=== PATIENT | male | born 1935 | race Caucasian/White ===

== ENCOUNTER 2016-02-21 14:36 | Observation (INO) | payer OTHER, MEDICARE ==
[2016-02-21] MEDS ORDERED: NS 1,000 ML IV ONE ×2 (14:51→22:45)
[2016-02-21] MEDS ORDERED: MECLIZINE HCL 25 MG TAB PO ONE (14:51)
[2016-02-21] MEDS ORDERED: ONDANSETRON 4 MG/2 ML VIAL IVP ONE (14:51)
--- NOTE | 2016-02-21 14:51 | CPEKG ---
Heart Rate: 58 RR Interval: 1034 P-R Interval: 232 QRSD Interval: 82 QT Interval: 456 QTC Interval: 448 P [place]: 67 QRS [place]: 33 T Wave [place]: 56 EKG Severity - ABNORMAL ECG - EKG Impression: SINUS RHYTHM EKG Impression: FIRST DEGREE AV BLOCK Electronically Signed By: Chapin Bauman 21-Feb-2016 15:56:48
--- NOTE | 2016-02-21 14:58 | EDPHY ---
H & P Time Seen by Provider: 02/21/16 14:51 HPI/ROS: CHIEF COMPLAINT: Vertigo, vomiting HISTORY OF PRESENT ILLNESS: The patient presents to the ED after he developed vertigo and vomiting approximately 2 hours ago. The patient has had a several week history of an upper respiratory infection which she has slowly been improving from. The patient has not been on any antibiotics. He has a chronic seizure disorder which he takes Depakote and phenobarbital for. He has not had a seizure in many years. The patient denies any focal numbness or weakness. He is not anticoagulated. He denies fall or trauma. He has no complaints of unilateral neck discomfort, chiropractic manipulation or recent cervical injury. REVIEW OF SYSTEMS: A comprehensive 10 point review of systems is otherwise negative aside from elements mentioned in the history of present illness. Source: Patient Exam Limitations: No limitations - Personal History Current Tetanus/Diphtheria Vaccine: Yes - Medical/Surgical History PMH: Past medical history: Seizure disorder - Social History Smoking Status: Never smoked - Physical Exam Exam: General Appearance: Alert, no distress Eyes: Mild horizontal nystagmus noted with leftward gaze ENT, Mouth: Mucous membranes moist Respiratory: There are no retractions, lungs are clear to auscultation Cardiovascular: Regular rate and rhythm Gastrointestinal: Abdomen is soft and nontender, no masses, bowel sounds normal Neurological: 5/5 strength all 4 extremities, cranial nerves 2-12 intact, normal finger to nose Skin: Warm and dry, no rashes Musculoskeletal: Neck is supple nontender Extremities: symmetrical, full range of motion Constitutional: Initial Vital Signs Temperature (C) 36.3 C 02/21/16 14:36 Heart Rate 59 L 02/21/16 14:36 Respiratory Rate 12 02/21/16 14:36 Blood Pressure 157/85 H 02/21/16 14:36 O2 Sat (%) 98 02/21/16 14:36 O2 Delivery Mode Nasal Cannula O2 (L/minute) 3 Allergies/Adverse Reactions: No Known Allergies Allergy (Unverified 02/21/16 14:48) Home Medications: Medication Instructions Recorded ASPIRIN 02/21/16 Dilantin 02/21/16 PHENOBARBITAL 02/21/16 Medical Decision Making - Diagnostics EKG Interpretation: EKG: Complete interpretation has been separately recorded in the [facility] archive. Summary impression: Sinus rhythm, first-degree AV block Imaging: CT head without contrast: Negative for intracranial hemorrhage, atrophy is noted. Chest x-ray AP: Images reviewed by myself, changes consistent with bronchitis or noted. ED Course/Re-evaluation: The patient presents to the emergency department with benign positional vertigo. The patient received IV Zofran and oral meclizine. Given his history of seizure disorder I did get a CT scan of his head which demonstrates no evidence of an intracranial hemorrhage or mass. Patient has had a one-week history of upper respiratory symptoms and does have evidence of bronchitis on his chest x-ray. The patient's neurologic examination was noted to be within normal limits aside from horizontal nystagmus with leftward gaze. In the ED, the patient received IV fluids and had multiple examinations by myself x3 over a 4 hour period. The patient has had fairly significant improvement of his symptoms but continues to feel quite unsteady with ambulation. I do feel that he will require admission to the hospital for symptomatic management of his vertigo. The patient will be admitted by the hospitalist service. His case has been discussed with Dr. Ben Ch. Considered the possibility of supratherapeutic anticonvulsant levels. A phenobarbital level has been ordered. I would expect that this would primarily resultant somnolence if it was elevated. The patient's Dilantin level was noted not to be supratherapeutic. Differential Diagnosis: Differential diagnosis considered includes benign positional vertigo, labyrinthitis, central vertigo, intracranial mass, stroke, TIA, pneumonia, Dilantin toxicity - Data Points Laboratory Results: Laboratory Results 02/21/16 14:40 02/21/16 14:40 02/21/16 02/21/16 14:40 14:10 WBC 6.16 10^3/uL (3.80-9.50) RBC 4.20 L 10^6/uL (4.40-6.38) Hgb 14.6 g/dL (13.7-17.5) Hct 41.4 % (40.0-51.0) MCV 98.6 fL (81.5-99.8) MCH 34.8 H pg (27.9-34.1) MCHC 35.3 g/dL (32.4-36.7) RDW 12.7 % (11.5-15.2) Plt Count 224 10^3/uL (150-400) MPV 10.1 fL (8.7-11.7) Neut % (Auto) 72.8 % (39.3-74.2) Lymph % (Auto) 16.6 % (15.0-45.0) Chase % (Auto) 6.7 % (4.5-13.0) Eos % (Auto) 3.1 % (0.6-7.6) Baso % (Auto) 0.5 % (0.3-1.7) Nucleat RBC Rel Count 0.0 % (0.0-0.2) Absolute Neuts (auto) 4.49 10^3/uL (1.70-6.50) Absolute Lymphs (auto) 1.02 10^3/uL (1.00-3.00) Absolute Monos (auto) 0.41 10^3/uL (0.30-0.80) Absolute Eos (auto) 0.19 10^3/uL (0.03-0.40) Absolute Basos (auto) 0.03 10^3/uL (0.02-0.10) Absolute Nucleated RBC 0.00 10^3/uL (0-0.01) Immature Gran % 0.3 % (0.0-1.1) Immature Gran # 0.02 10^3/uL (0.00-0.10) Sodium 143 mEq/L (134-144) Potassium 4.6 mEq/L (3.5-5.2) Chloride 102 mEq/L (97-110) Carbon Dioxide 29 mEq/l (22-31) Anion Gap 12 mEq/L (8-16) BUN 16 mg/dL (7-23) Creatinine 0.7 mg/dL (0.7-1.3) Estimated GFR > 60 Glucose 114 H mg/dL (70-100) Calcium 9.1 mg/dL (8.5-10.4) Troponin I < 0.012 ng/mL (0-0.034) Phenytoin 5.7 L mcg/mL (10.0-20.0) Phenobarbital Pending Medications Given: Discontinued Medications Sodium Chloride (Ns) 1,000 mls @ 0 mls/hr IV ONCE ONE PRN Reason: Wide Open Stop: 02/21/16 14:52 Last Admin: 02/21/16 15:04 Dose: 1,000 mls Meclizine HCl (Meclizine Hcl) 25 mg PO EDNOW ONE Stop: 02/21/16 14:52 Last Admin: 02/21/16 15:00 Dose: 25 mg Ondansetron HCl (Zofran) 4 mg IVP EDNOW ONE Stop: 02/21/16 14:52 Last Admin: 02/21/16 16:50 Dose: 4 mg Departure - Departure Disposition: [facility] Clinical Impression: Vertigo Condition: Fair
[2016-02-21 15:48] LABS: % IMMATURE GRANULYOCYTES 0.3 % (0.0-1.1); ABSOLUTE IMMATURE GRANULOCYTES 0.02 10^3/uL (0.00-0.10); ADD DIFF? NO; ADD MORPH? NO; ADD SCAN? NO; ATYPICAL LYMPHOCYTE FLAG 0 (0-99); FRAGMENT RBC FLAG 0 (0-99); HEMATOCRIT 41.4 % (40.0-51.0); HEMOGLOBIN 14.6 g/dL (13.7-17.5); LEFT SHIFT FLG 0 (0-99); LIPEMIA HEMOLYSIS FLAG 90 (0-99); MEAN CELL HEMOGLOBIN 34.8 pg (27.9-34.1); MEAN CELL HEMOGLOBIN CONCENTR. 35.3 g/dL (32.4-36.7); MEAN CELL VOLUME 98.6 fL (81.5-99.8); MEAN PLATELET VOLUME 10.1 fL (8.7-11.7); PLATELET CLUMPS FLAG 0 (0-99); PLATELET COUNT 224 10^3/uL (150-400); RED CELL DISTRIBUTION WIDTH 12.7 % (11.5-15.2)
[2016-02-21 15:57] LABS: ANION GAP 12 mEq/L (8-16); CALCIUM 9.1 mg/dL (8.5-10.4); CARBON DIOXIDE 29 mEq/l (22-31); CHLORIDE 102 mEq/L (97-110); CREATININE 0.7 mg/dL (0.7-1.3); GLOMERULAR FILTRATION RATE > 60; GLUCOSE 114 mg/dL (70-100); POTASSIUM 4.6 mEq/L (3.5-5.2); SODIUM 143 mEq/L (134-144)
[2016-02-21 16:08] LABS: TROPONIN I < 0.012 ng/mL (0-0.034)
--- NOTE | 2016-02-21 16:26 | CT ---
CT Brain (Without Contrast) at 1613 hours History: Ataxia, vertigo. Comparison: None. Technique: Axial computed tomographic images of the brain without contrast. Dose reduction techniques were utilized. Findings: Ventricles, cisterns, and sulci are widened consistent with atrophy. No hydrocephalus, mid line shift/herniation, or epidural/subdural hematomas. No acute intraparenchymal hemorrhage or mass e ffect. Cerebrovascular atherosclerosis. Hypodensities in the white matter of bilateral cerebral hemis pheres. Bone windows demonstrate no displaced fractures. Paranasal sinuses and mastoid air cells are clear. Impression: 1. Mild atrophy. 2. No acute hemorrhage, hydrocephalus, or mass effect. 3. Cerebrovascular atherosclerosis. 4. No definite acute infarct. 5. Mild microvascular ischemic gliosis. 6. Consider MRI of the brain without and with contrast enhancement, if there is continued clinical co ncern. Findings and recommendations discussed with Emergency Department physician, Dr. Chapin Bauman at 162 0 hours today. Final report concurs with initial preliminary interpretation.
--- NOTE | 2016-02-21 19:43 | DX ---
Chest, One View Portable 1652 hours History: Cough. Comparison: None. Findings: Cardiac silhouette is mildly enlarged. No pneumonia, congestive heart failure, pleural eff usion, or pneumothorax. Bilateral peribronchial thickening. Bilateral hilar and left lower lobe calci fied granulomata. Impression: 1. Bronchitis. 2. No definite pneumonia. 3. Consider chest two views when the patient's medical condition permits.
[2016-02-21 20:11] VITALS: RESP 18
--- NOTE | 2016-02-21 20:30 | GHP ---
[f rep st] HISTORY AND PHYSICAL DATE OF ADMISSION: 02/21/2016 CHIEF COMPLAINT: Dizziness. HISTORY OF PRESENT ILLNESS: This is an 80-year-old male who leads a very active life and continues t o snowboard who presented to the emergency department today by EMS with vertigo. The patient states that around noon he suddenly became debilitated with room spinning dizziness. It occurred while he w as getting dressed. His symptoms lasted for hours. The dizziness would get better with lying still but would come back whenever he would try to move. He denies any previous episodes of this. He wendie es any new hearing loss. He denies any focal neurologic deficits. He has been suffering from upper respiratory infection over the past few weeks. PAST MEDICAL HISTORY: Glaucoma, seizure disorder. PAST SURGICAL HISTORY: Hernia repair. HOME MEDICATIONS: Aspirin, Dilantin, phenobarbital. ALLERGIES: No known drug allergies. SOCIAL HISTORY: The patient lives independently with his . He denies any alcohol, tobacco or il licit drug use. FAMILY HISTORY: Reviewed and noncontributory. REVIEW OF SYSTEMS: Comprehensive 10-point review of systems was done and is negative except for as m entioned in the HPI and below. CARDIOVASCULAR: Denies chest pain or palpitations. PHYSICAL EXAM: VITAL SIGNS: Blood pressure 149/85, pulse 64, respiratory rate 20, O2 sat 100% on 3 L. Temperature afebrile. GENERAL: No acute distress. HEAD: Normocephalic, atraumatic. EYES: PE RRLA. Sclerae anicteric. MOUTH: Moist mucous membranes. EARS: Tympanic membranes were not visual ized due to cerumen impaction. NECK: Supple. No lymphadenopathy. CARDIOVASCULAR: S1, S2. No JVD . No lower extremity edema. No carotid bruits. PULMONARY: Lungs are clear. No wheezes, rales, or rhonchi. ABDOMEN: Soft, nontender, nondistended. No guarding or rebound tenderness. Normoactive bowel sounds. EXTREMITIES: No clubbing or cyanosis. NEURO: Cranial nerves 2-12 grossly intact. T here is no nystagmus. Beverly-Hallpike test is positive with left rotation. SKIN: Clear, no rashes. DIAGNOSTICS: CBC was reviewed and unremarkable. Chemistry was reviewed and unremarkable. Troponin was less than 0.012. Dilantin level is 5.7, phenobarbital level is pending. Head CT was reviewed with no hemorrhage, hydrocephalus or mass effect. Chest x-ray, which I visualiz ed and personally interpreted, showed no pneumonia, possible bronchitis. EKG, which I visualized and personally interpreted, sinus rhythm, rate 58 beats per minute, with 1st degree AV block. There are no acute ischemic changes. ASSESSMENT: This is an 80-year-old male presenting with: 1. Acute vertigo, which I suspect is due to BPPV versus acute neuronitis, doubt central cause of lizette tigo. PLAN: Patient will be placed on observation. I did attempt Fabby maneuver in the emergency departme nt. His vertigo will be treated symptomatically with meclizine and Valium at a low dose, if the mecl izine is ineffective. The patient was instructed to keep the head of bed at least 30 degrees and to avoid any sudden head rotation. /[id number]/MODL
[2016-02-21] MEDS ORDERED: MECLIZINE HCL 25 MG TAB PO PRN (21:34)
[2016-02-21] MEDS ORDERED: ONDANSETRON 4 MG/2 ML VIAL IVP PRN (22:46)
[2016-02-21] MEDS: BRIMONIDINE 0.2% 5 ML OPHT.BTL EACHEYE SCH (22:51)
[2016-02-21] MEDS: TIMOLOL 0.5% 15 ML OPHT.BTL EACHEYE SCH (22:52)
[2016-02-21] MEDS: PHENYTOIN SODIUM EXTENDED 100 MG CAP PO SCH (22:54)
[2016-02-21] MEDS: PHENobarbital 30 MG TAB PO SCH (22:54)
[2016-02-21] MEDS: DORZOLAMIDE 2% OPTH DROPS EACHEYE SCH (23:03)
[2016-02-21] MEDS: LATANOPROST 0.005% 2.5 ML OPHT DROPS RTEYE SCH (23:03)
[2016-02-22] MEDS ORDERED: PHENYTOIN SODIUM EXTENDED 100 MG CAP PO SCH (06:00)
[2016-02-22] MEDS ORDERED: PHENOBARBITAL 32.4 MG PO SCH (06:00)
[2016-02-22] MEDS ORDERED: PHENobarbital 30 MG TAB PO SCH (06:00)
[2016-02-22] MEDS: PHENYTOIN SODIUM EXTENDED 100 MG CAP PO SCH ×2 (06:04→11:40)
[2016-02-22] MEDS: PHENobarbital 30 MG TAB PO SCH ×2 (06:08→11:59)
[2016-02-22] MEDS: BRIMONIDINE 0.2% 5 ML OPHT.BTL EACHEYE SCH (08:48)
[2016-02-22] MEDS: TIMOLOL 0.5% 15 ML OPHT.BTL EACHEYE SCH (08:48)
[2016-02-22] MEDS ORDERED: BRIMONIDINE 0.2% 5 ML OPHT.BTL EACHEYE SCH (09:00)
[2016-02-22] MEDS ORDERED: ASPIRIN 325 MG TAB PO SCH (09:00)
[2016-02-22] MEDS: DORZOLAMIDE 2% OPTH DROPS EACHEYE SCH (09:47)
--- NOTE | 2016-02-22 11:00 | HOSPPROG ---
Hospitalist Progress Note Assessment/Plan: Patient is an 80-year-old male who presented to the emergency room with dizziness and with the room spinning. Today is my 1st encounter with the patient chart reviewed. #. Vertigo /likely BPPV -symptoms completely resolved -suspect he was dehydrated in addition #. history of seizures - home medications resumed #. Urinary retention -episodic/ voiding without difficulty now -encouraged him to f/u with his PCP #. Plan -dc home Subjective: Reginald is feeling well/ no further complaints of dizziness. Objective: Vital Signs Temp Pulse Resp BP Pulse Ox 36.7 C 65 18 112/72 96 02/22/16 08:00 02/22/16 08:00 02/22/16 08:00 02/22/16 08:00 02/22/16 08:00 02/21/16 02/22/16 02/23/16 05:59 05:59 05:59 Intake Total 2150 Output Total 525 200 Balance 1625 -200 - Physical Exam Constitutional: no apparent distress, appears nourished, not in pain Eyes: PERRL Ears, Nose, Mouth, Throat: hearing normal Cardiovascular: regular rate and rhythym Respiratory: no respiratory distress Gastrointestinal: normoactive bowel sounds Skin: warm Musculoskeletal: no muscle tenderness Neurologic: AAOx3 Psychiatric: interacting appropriately, not anxious ICD10 Worksheet Patient Problems: Problems Problem Status Diagnosed Vertigo Acute
[2016-02-22] MEDS: LATANOPROST 0.005% 2.5 ML OPHT DROPS RTEYE SCH (11:27)
[2016-02-22 11:50] VITALS: BP 125/74; PULSE 59; TEMP 98.3; O2SAT 91
--- NOTE | 2016-02-22 12:29 | GDS ---
[f rep st] DISCHARGE SUMMARY DISCHARGE DIAGNOSES: 1. Vertigo/likely benign position paroxysmal vertigo. 2. History of seizures. 3. Urinary retention. BRIEF HISTORY: The patient is a very nice 80-year-old man who presented to the emergency room via EM S with symptoms of vertigo. He stated that around noon he became debilitated and the room was [facility]. He shared with me he had been taking decongestants because he had an upper respiratory infection and wondered if he had been dehydrated instead. His symptoms improved in the emergency room after g etting the Fabby maneuver. He will be discharged home and have further follow up with his primary care provider. HOSPITAL COURSE PER PROBLEM: 1. Vertigo, likely BPPV (benign position paroxysmal vertigo): Symptoms have completely resolved. 2. History of seizures: Home medications have been resumed. 3. Urinary retention: This is episodic. He is voiding at this time without difficulty. I encourag ed him to follow up with his PCP pending labs. Phenobarbital level is pending. CONDITION AT DISCHARGE: Stable. Blood pressure is 112/72, O2 saturations on room air 96%. Respirat ory rate is 18. Pulse is 65. Temperature is 36.7 Celsius. MEDICATIONS AT DISCHARGE: Please see the EMR. DISCHARGE INSTRUCTIONS: 1. To stay well hydrated. 2. To follow up with his pending phenobarbital level. 3. To follow up with his primary care provider and get further workup in case he may have an enlarge d prostate effecting his urination. Copy requested to: PCP /[id number]/MODL
== END 2016-02-22 13:10 | disposition home or self-care (01) ==
LOC: EDUNIT# → F3N 19:59
PROVIDERS: ADMIT Family Medicine; ATTEND Family Medicine
DX: R42 Dizziness and giddiness (principal); R33.9 Retention of urine, unspecified; R56.9 Unspecified convulsions
CPT/HCPCS: 70450; 71010; 93005; 96361; 96374; 99285; G0378; J2405

== ENCOUNTER 2016-02-23 00:11 | Emergency (ER) | payer OTHER, MEDICARE ==
[2016-02-23 00:21] VITALS: RESP 16; TEMP 97.9
--- NOTE | 2016-02-23 00:39 | EDPHY ---
HPI/HX/ROS/PE/MDM Narrative: Chief complaint: Urinary retention HPI: 80-year-old male was discharged from the hospital yesterday morning after admission for vertigo and urinary retention. Patient states he had upper respiratory symptoms was taking decongestants at home. He had an episode of vertigo which had improved and was discharged yesterday. Patient states that he was urinating with some difficulty when he left but about 3 hours ago was unable to urinate. He has increasing pressure in urgency urinate but is unable to pass any urine. Denies any fevers or chills. No nausea or vomiting. He has not had any more vertigo. ROS: 10 point Review of Systems is negative except as noted in the HPI. Physical exam: Gen: Awake, Alert, No Distress HEENT: Nose: no rhinorrhea Eyes: PERRLA, EOMI Mouth: Moist mucosa Neck: Supple, no JVD Chest: nontender, lungs clear to auscultation Heart: S1, S2 normal, no murmur Abd: Soft, non-tender, no guarding Back: no CVA tenderness, no midline tenderness Ext: no edema, non-tender Skin: no rash Neuro: CN II-XII intact, Sensation grossly intact, Strength 5/5 in bilateral upper and lower extremities ED Course: Quinn catheter placed. Patient had 800 mL of clear urine out. He feels significantly improved. Urinalysis shows some blood but otherwise no evidence of infection at this time. He will be discharged home with a leg bag with a Quinn catheter in place and follow up with Urology. Will return to the emergency depart for any concerns or worsening of symptoms. General Time Seen by Provider: 02/23/16 00:38 Initial Vital Signs: Initial Vital Signs Temperature (C) 36.6 C 02/23/16 00:15 Heart Rate 63 02/23/16 00:15 Respiratory Rate 16 02/23/16 00:15 Blood Pressure 169/92 H 02/23/16 00:15 O2 Sat (%) 96 02/23/16 00:15 O2 Delivery Mode Room Air Allergies/Adverse Reactions: No Known Allergies Allergy (Verified 02/21/16 20:14) Home Medications: Medication Instructions Recorded Aspirin [Aspirin 325 mg (*)] 325 mg PO DAILY 02/21/16 Brimonidine 0.2% [Alphagan 0.2%] 1 drops EACHEYE BID 02/21/16 Dorzolamide 2% [Trusopt 2% (*)] 1 drops EACHEYE BID 02/21/16 Latanoprost 0.005% [Xalatan 0.005% 1 drops RTEYE HS 02/21/16 (*)] Phenobarbital 32.4 mg PO QID 02/21/16 Phenytoin Sodium Extended 100 mg PO QID 02/21/16 [Dilantin (*)] Timolol 0.5% [TIMOPTIC 0.5% (*)] 1 drops EACHEYE BID 02/21/16 Departure - Departure Disposition: Home, Routine, Self-Care Clinical Impression: Acute retention of urine Condition: Good Instructions: Urinary Retention in Men (ED), Quinn Catheter Placement and Care (ED) Additional Instructions: Keep catherter in place until seen by urology or your physician. Return to the ER for increasing pain, fever, chills or any other concerns. Referrals: Milton Box MD [Primary Care Provider] - As per Instructions Leo Wong MD [Medical Doctor] - As per Instructions
[2016-02-23 01:54] VITALS: BP 120/65; PULSE 65; O2SAT 93
== END 2016-02-23 01:52 | disposition home or self-care (01) ==
PROC: 0T9B70Z Drainage of Bladder with Drainage Device, Via Natural or Artificial Opening (ICD-10-PCS; principal; 2016-02-23)
DX: R33.9 Retention of urine, unspecified (principal); Z79.82 Long term (current) use of aspirin

== ENCOUNTER 2016-02-26 13:20 | Emergency (ER) | payer OTHER, MEDICARE ==
[2016-02-26 13:33] VITALS: TEMP 98.1
--- NOTE | 2016-02-26 14:15 | EDPHY ---
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 HISTORY OF PRESENT ILLNESS: The patient is an 80 y/o male complaining of bleeding and intermittent pain at the site of his Quinn catheter since it was removed. He had the catheter placed one week ago for acute urinary retention and had it removed at his urologist's office, Dr. Wong, today. The nurse was then showing him how to self-cath and he developed some hematuria with abdominal cramping. He had increasing intermittent pain while at home that is now associated with inability to void. He takes an aspirin daily. REVIEW OF SYSTEMS: Constitutional: No fever, no chills Eyes: No visual changes ENT: No sore throat Respiratory: No cough, no shortness of breath Cardiac: No chest pain Gastrointestinal: No nausea, no vomiting Genitourinary: see HPI Musculoskeletal: No leg pain or swelling Skin: No rash Neurological: No headache, no numbness, no weakness Psychiatric: No depression (Denise Phelps) - Medical/Surgical History PMH: 1. Vertigo 2. Seizure disorder, last seizure in his 20s (Denise Phelps) - Social History Additional Social History: Family at bedside. (Denise Phelps) - Physical Exam Exam: General Appearance: Alert, no distress Eyes: Pupils equal and round, no conjunctival pallor or injection ENT, Mouth: Mucous membranes moist Neck: Normal inspection Respiratory: Lungs are clear to auscultation Cardiovascular: Regular rate and rhythm Gastrointestinal: Abdomen is soft and non- tender Urinary: Neurological: A&O, nonfocal, normal gait Skin: Warm and dry, no rash Extremities: Nontender, no pedal edema Psychiatric: Mood and affect normal (Denise Phelps) Constitutional: Initial Vital Signs Temperature (C) 36.7 C 02/26/16 13:30 Heart Rate 83 02/26/16 13:30 Respiratory Rate 20 02/26/16 13:30 Blood Pressure 158/86 H 02/26/16 13:30 O2 Sat (%) 97 02/26/16 13:30 O2 Delivery Mode Room Air O2 (L/minute) 2 Allergies/Adverse Reactions: No Known Allergies Allergy (Verified 02/21/16 20:14) Home Medications: Medication Instructions Recorded Aspirin [Aspirin 325 mg (*)] 325 mg PO DAILY 02/21/16 Brimonidine 0.2% [Alphagan 0.2%] 1 drops EACHEYE BID 02/21/16 Dorzolamide 2% [Trusopt 2% (*)] 1 drops EACHEYE BID 02/21/16 Latanoprost 0.005% [Xalatan 0.005% 1 drops RTEYE HS 02/21/16 (*)] Phenobarbital 32.4 mg PO QID 02/21/16 Phenytoin Sodium Extended 100 mg PO QID 02/21/16 [Dilantin (*)] Timolol 0.5% [TIMOPTIC 0.5% (*)] 1 drops EACHEYE BID 02/21/16 Medical Decision Making ED Course/Re-evaluation: Dr. kent, urology, has placed an 18 [place] catheter under fluoroscopy. Patient did drink some clots and continue some dried blood but is running clear well. He is comfortable with the patient going home with a catheter in place. Family should call his office or Dr. Call office on Monday for follow-up appointment next week. (Valdo Siddiqui) Plan for Quinn placement. CBC and CHEM ordered. Three-way Quinn catheter placed. There was a large blood clot expressed, then the catheter would not flush and there was no urinary output. Bladder scan revealed 350 mL urine in the bladder. The patient increasing pain. The catheter was removed. Another three-way catheter was placed and there was no urine output and the nurse was unable to flush the catheter. Dr. Allen, urology, was consulted. (Denise Phelps) Differential Diagnosis: ongoing hemorrhage, bladder injury, urethral injury, severe anemia (Denise Phelps) - Data Points Laboratory Results: Laboratory Results 02/26/16 15:54 02/26/16 15:54 Medications Given: Discontinued Medications Morphine Sulfate (Morphine) 6 mg IVP EDNOW ONE Stop: 02/26/16 15:20 Last Admin: 02/26/16 15:59 Dose: 6 mg Morphine Sulfate (Morphine) 6 mg IVP EDNOW ONE Stop: 02/26/16 16:42 Last Admin: 02/26/16 16:50 Dose: 6 mg Ondansetron HCl (Zofran) 4 mg IVP EDNOW ONE Stop: 02/26/16 15:20 Last Admin: 02/26/16 15:59 Dose: 4 mg Departure - Departure Disposition: Home, Routine, Self-Care Clinical Impression: Urinary retention, Hematuria Condition: Good Instructions: Urinary Retention in Men (ED) Additional Instructions: Follow up with a urologist next week. Return to the ED for any worsening of condition. Referrals: Elvis Allen MD [Medical Doctor] - As per Instructions Report Scribed for: Denise Phelps Report Scribed by: Yenni Ramos Date of Report: 02/26/16 Time of Report: 14:19 Physician Review and Approval Statement: 02/26/16 14:20 Portions of this note were transcribed by a medical assistant supervisor. I personally performed a history, physical exam, medical decision making, and confirmed accuracy of information the transcribed note. (Denise Phelps)
[2016-02-26] MEDS ORDERED: LIDOCAINE 2% JELLY 20 ML (UROJECT) ONE ×2 (14:19→16:51)
[2016-02-26] MEDS ORDERED: ONDANSETRON 4 MG/2 ML VIAL IVP ONE (15:19)
[2016-02-26 16:02] LABS: % IMMATURE GRANULYOCYTES 0.3 % (0.0-1.1); ABSOLUTE IMMATURE GRANULOCYTES 0.03 10^3/uL (0.00-0.10); ADD DIFF? NO; ADD MORPH? NO; ADD SCAN? NO; ATYPICAL LYMPHOCYTE FLAG 10 (0-99); FRAGMENT RBC FLAG 0 (0-99); HEMATOCRIT 38.4 % (40.0-51.0); HEMOGLOBIN 13.9 g/dL (13.7-17.5); LEFT SHIFT FLG 0 (0-99); LIPEMIA HEMOLYSIS FLAG 90 (0-99); MEAN CELL HEMOGLOBIN CONCENTR. 36.2 g/dL (32.4-36.7); MEAN CELL VOLUME 96.7 fL (81.5-99.8); MEAN PLATELET VOLUME 9.5 fL (8.7-11.7); PLATELET CLUMPS FLAG 0 (0-99); PLATELET COUNT 287 10^3/uL (150-400); RED BLOOD CELL COUNT 3.97 10^6/uL (4.40-6.38); RED CELL DISTRIBUTION WIDTH 12.2 % (11.5-15.2)
[2016-02-26 16:23] LABS: ANION GAP 14 mEq/L (8-16); CALCIUM 9.5 mg/dL (8.5-10.4); CARBON DIOXIDE 23 mEq/l (22-31); CHLORIDE 103 mEq/L (97-110); CREATININE 0.8 mg/dL (0.7-1.3); GLOMERULAR FILTRATION RATE > 60; GLUCOSE 148 mg/dL (70-100); POTASSIUM 3.9 mEq/L (3.5-5.2); SODIUM 140 mEq/L (134-144)
[2016-02-26 20:48] VITALS: BP 159/86; PULSE 78; RESP 16; O2SAT 93
== END 2016-02-26 20:47 | disposition home or self-care (01) ==
LOC: EDUNIT#
PROC: 0T9B70Z Drainage of Bladder with Drainage Device, Via Natural or Artificial Opening (ICD-10-PCS; principal; 2016-02-26)
DX: R31.9 Hematuria, unspecified (principal); R33.9 Retention of urine, unspecified; Z79.82 Long term (current) use of aspirin
CPT/HCPCS: 51702; 96374; 96375; 96376; 99284; J2405

== ENCOUNTER 2016-02-27 10:59 | Emergency (ER) | payer OTHER, MEDICARE ==
[2016-02-27 11:07] VITALS: RESP 18; TEMP 99.1
--- NOTE | 2016-02-27 11:46 | EDPHY ---
H & P Time Seen by Provider: 02/27/16 11:19 HPI/ROS: CHIEF COMPLAINT: Blood from catheter HISTORY OF PRESENT ILLNESS: The patient is an 80 year old male presenting with continued bleeding from his Stanford catheter site. The patient was seen here yesterday with urinary retention and clotting from his Stanford catheter site. [address] were [address], but there was no urine output and catheter was unable to be flushed. Dr. Allen, Urology, placed an 18 English catheter and patient was discharged home. He has since had continued blood drain from the catheter. For about 2-3 hours the catheter was clogged causing intermittent abdominal pain. On the way here a clot passed and more blood was drained. REVIEW OF SYSTEMS: Aside from elements discussed in the HPI, a comprehensive 10-point review of systems was reviewed and is negative. Past Medical/Surgical History: Seizure disorder, Urinary retention. Social History: Family at bedside. Smoking Status: Never smoked Physical Exam: General Appearance: Alert, no distress Eyes: Pupils equal and round, no conjunctival pallor or injection ENT, Mouth: Mucous membranes moist Neck: Normal inspection Respiratory: Lungs are clear to auscultation Cardiovascular: Regular rate and rhythm Gastrointestinal: Abdomen is soft and non-tender Neurological: A&O, nonfocal, normal gait Skin: Warm and dry, no rash Extremities: Nontender, no pedal edema Psychiatric: Mood and affect normal Constitutional: Initial Vital Signs Temperature (C) 37.3 C 02/27/16 11:05 Heart Rate 97 02/27/16 11:05 Respiratory Rate 18 02/27/16 11:05 Blood Pressure 106/58 L 02/27/16 11:05 O2 Sat (%) 94 02/27/16 11:05 O2 Delivery Mode Room Air Allergies/Adverse Reactions: No Known Allergies Allergy (Verified 02/21/16 20:14) Home Medications: Medication Instructions Recorded Aspirin [Aspirin 325 mg (*)] 325 mg PO DAILY 02/21/16 Brimonidine 0.2% [Alphagan 0.2%] 1 drops EACHEYE BID 02/21/16 Dorzolamide 2% [Trusopt 2% (*)] 1 drops EACHEYE BID 02/21/16 Latanoprost 0.005% [Xalatan 0.005% 1 drops RTEYE HS 02/21/16 (*)] Phenobarbital 32.4 mg PO QID 02/21/16 Phenytoin Sodium Extended 100 mg PO QID 02/21/16 [Dilantin (*)] Timolol 0.5% [TIMOPTIC 0.5% (*)] 1 drops EACHEYE BID 02/21/16 Medical Decision Making ED Course/Re-evaluation: Bladder scan revealed 97ml of fluid in the bladder. The patient's Stanford catheter was flushed with 2L saline. Blood clots were cleared. Pt feels much better, and now has drainage of clear pink urine. d/w Dr. Allen, will f/u in office. Differential Diagnosis: includes though not limited to urethral/bladder injury, ongoing hemorrhage, stanford catheter blockage Departure - Departure Disposition: Home, Routine, Self-Care Clinical Impression: Gross hematuria Stanford catheter problem Qualifiers: Encounter type: initial encounter Qualifier Code: (T83.9XXA) Unspecified complication of genitourinary prosthetic device, implant and graft, initial encounter Condition: Good Instructions: Stanford Catheter Placement and Care (ED) Additional Instructions: Call Dr. Allen's office on Monday to schedule a followup appointment. Return to the Emergency Department with new or worsening symptoms. Referrals: Elvis Allen MD [Medical Doctor] - As per Instructions (Urology) Report Scribed for: Denise Phelps Report Scribed by: Elza Gibbs Date of Report: 02/27/16 Time of Report: 11:45 Physician Review and Approval Statement: 02/27/16 11:45 Portions of this note were transcribed by a medical observer. I personally performed the history, physical exam, and medical decision-making; and confirmed the accuracy of the information in the transcribed note.
[2016-02-27 12:42] VITALS: BP 111/57; PULSE 70; O2SAT 93
== END 2016-02-27 13:09 | disposition home or self-care (01) ==
DX: T83.89XA Other specified complication of genitourinary prosthetic devices, implants and grafts, initial encounter (principal); R31.0 Gross hematuria; Z79.82 Long term (current) use of aspirin; Y82.8 Other medical devices associated with adverse incidents

== ENCOUNTER 2017-02-22 07:26 | Inpatient (IN) | payer OTHER, MEDICARE ==
[2017-02-22] MEDS ORDERED: ACETAMINOPHEN 325 MG TAB PO ONE (08:07)
[2017-02-22] MEDS ORDERED: DEXAMETHASONE 4 MG/ML VIAL IVP ONE (08:07)
[2017-02-22] MEDS ORDERED: POVIDONE-IODINE 20 ML in SODIUM CL IRRIG SOLUTION 500 ML IRR ONE (08:07)
[2017-02-22] MEDS ORDERED: ROPIVACAINE 0.2% 80 MG, EPINEPHrine 0.2 MG, KETOROLAC TROMETHAMINE 30 MG in SYRINGE 0 ML IU ONE (08:07)
[2017-02-22] MEDS ORDERED: ONDANSETRON DISINTEGRATING 4 MG TAB PO ONE (08:07)
[2017-02-22] MEDS ORDERED: LR 1,000 ML IV ONE (08:07)
[2017-02-22] MEDS ORDERED: TRANEXAMIC ACID 1,600 MG in NS 100 ML IV ONE (08:07)
[2017-02-22] MEDS ORDERED: FAMOTIDINE 20 MG TAB PO ONE (08:07)
[2017-02-22] MEDS ORDERED: GABAPENTIN 300 MG CAP PO ONE (08:07)
[2017-02-22] MEDS ORDERED: MIDAZOLAM 2 MG/2 ML VIAL IVP ONE (08:15)
--- NOTE | 2017-02-22 08:15 | PDANEPAE ---
ANE History of Present Illness L BACILIO ANE Past Medical History - Cardiovascular History Hx Hypertension: No Hx Arrhythmias: No Hx Chest Pain: No Hx Coronary Artery / Peripheral Vascular Disease: No Hx CHF / Valvular Disease: No Hx Palpitations: No - Pulmonary History Hx COPD: No Hx Asthma/Reactive Airway Disease: No Hx Recent Upper Respiratory Infection: No Hx Oxygen in Use at Home: No Hx Sleep Apnea: No Sleep Apnea Screening Result - Last Documented: Negative - Neurologic History Hx Cerebrovascular Accident: No Hx Seizures: Yes Neurologic History Comment: hx of seizures in 20's and 30's - Endocrine History Hx Diabetes: No - Renal History Hx Renal Disorders: No - Liver History Hx Hepatic Disorders: No - Neurological & Psychiatric Hx Hx Neurological and Psychiatric Disorders: No - Cancer History Hx Cancer: Yes Cancer History Comment: skin cancer - Congenital Disorder History Hx Congenital Disorders: No - GI History Hx Gastrointestinal Disorders: No - Other Health History 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 - Chronic Pain History Chronic Pain: No - Surgical History Prior Surgeries: hernia ANE Review of Systems Review of systems is: negative Review of Systems: - Exercise capacity Exercise capacity: >=4 METS METS (RN): 6 METS ANE Patient History - Allergies Allergies/Adverse Reactions: pseudoephedrine [From Sudafed] Allergy (Verified 02/09/17 12:03) DIZZINESS - Home Medications Home medications: home medication list seen and reviewed Home Medications: Aspirin [Aspirin 325 mg (*)] 325 mg PO DAILY 02/21/16 [Last Taken Unknown] Brimonidine 0.2% [Alphagan 0.2%] 1 drops EACHEYE BID 02/21/16 [Last Taken Unknown] Dorzolamide 2% [Trusopt 2% (*)] 1 drops EACHEYE BID 02/21/16 [Last Taken Unknown ] Latanoprost 0.005% [Xalatan 0.005% (*)] 1 drops RTEYE HS 02/21/16 [Last Taken Unknown] Phenobarbital 32.4 mg PO QID 02/21/16 [Last Taken Unknown] Phenytoin Sodium Extended [Dilantin (*)] 100 mg PO QID 02/21/16 [Last Taken Unknown] Timolol 0.5% [TIMOPTIC 0.5% (*)] 1 drops EACHEYE BID 02/21/16 [Last Taken Unknown] Herbals/Supplements -Info Only 1 ea PO DAILY 02/09/17 [Last Taken Unknown] Multivitamins [Multivitamin (*)] 1 each PO DAILY 02/09/17 [Last Taken Unknown] - NPO status NPO Status: no food or drink >8 hours - Anes Hx Hx Anesthesia Complications (with details): hearing loss - Smoking Hx Smoking Status: Never smoked - Family Anes Hx Family Anes Hx: none Family Hx Anesthesia Complications: none ANE Labs/Vital Signs - Vital Signs Height: 182.88 cm Weight: 80.739 kg ANE Physical Exam - Airway Neck exam: FROM Mallampati Score: Class 1 Mouth exam: normal dental/mouth exam - Pulmonary Pulmonary: no respiratory distress - Cardiovascular Cardiovascular: regular rate and rhythym - ASA Status ASA Status: II ANE Anesthesia Plan Anesthesia Plan: spinal Urgent/Emergent Case: Delisa jacob completed preop but documented later for safe timely pt care (meditech unresponsive, unable to sign pre op)
--- NOTE | 2017-02-22 08:36 | PDHPUP ---
History & Physical Update H&P update statement: This history and physical update is based on an assessment of the patient which was completed after admission or registration (within 24 hours), but prior to the surgery/procedure. H&P update: H&P reviewed & patient examined, no change in patient's condition since H&P completed
[2017-02-22] MEDS ORDERED: ceFAZolin 1 GM/5 ML SYR ONE (08:41)
[2017-02-22] MEDS ORDERED: PROPOFOL/EMULSION 500 MG/50 ML BOTTLE IV ONE (09:50)
[2017-02-22] MEDS: ceFAZolin 2 GM/SWFI 2 GM/20 ML SYR IVP ONE ×2 (10:05→10:08)
[2017-02-22] MEDS ORDERED: HYDROmorphONE/DILAUDID 1 MG/ML INJ IVP PRN (10:39)
[2017-02-22] MEDS ORDERED: fentaNYL 100 MCG/2 ML INJ IVP PRN (10:39)
[2017-02-22] MEDS ORDERED: NALOXONE HCL 0.4 MG/ML INJ IVP PRN (10:39)
[2017-02-22] MEDS ORDERED: ACETAMINOPHEN 500 MG TAB PO PRN (10:39)
[2017-02-22] MEDS ORDERED: MEPERIDINE 25 MG/ML SYR IVP PRN (10:39)
[2017-02-22] MEDS ORDERED: ONDANSETRON 4 MG/2 ML VIAL IVP PRN ×2 (10:39→11:11)
[2017-02-22] MEDS ORDERED: OXYCODONE/APAP 5/325 TAB PO PRN (10:39)
[2017-02-22] MEDS ORDERED: HYDROCODONE/APAP 5/325 TAB PO PRN (10:39)
[2017-02-22] MEDS ORDERED: DEXAMETHASONE 4 MG/ML VIAL IVP PRN (10:39)
--- NOTE | 2017-02-22 10:41 | POSTANESTH ---
Post Anesthetic Evaluation Cardiovascular Status: Normal, Stable, Similar to Pre-Op Cond Respiratory Status: Normal, Stable, Similar to Pre-op Cond. Level of Consciousness/Mental Status: Can Participate in Eval, Mildly Sleepy, Arousable Pain Control: Adequate, Prn Tx Ordered Nausea/Vomiting Control: Adequate, Prn Tx Ordered Complications Possibly Related to Anesthesia: None Noted
[2017-02-22] MEDS ORDERED: PROMETHAZINE HCL 25 MG/ML INJ IVP PRN (11:11)
[2017-02-22] MEDS ORDERED: KETOROLAC 30 MG/1 ML SDV IVP PRN (11:11)
[2017-02-22] MEDS ORDERED: NS 500 ML IV PRN (11:11)
[2017-02-22] MEDS ORDERED: PROMETHAZINE HCL 25 MG SUPPR PR PRN (11:11)
[2017-02-22] MEDS ORDERED: traMADol 50 MG TAB PO PRN (11:11)
[2017-02-22] MEDS ORDERED: CYCLOBENZAPRINE 10 MG TAB PO PRN (11:11)
[2017-02-22] MEDS ORDERED: TEMAZEPAM 15 MG CAP PO PRN (11:11)
[2017-02-22] MEDS ORDERED: ONDANSETRON DISINTEGRATING 4 MG TAB PO PRN (11:11)
[2017-02-22] MEDS ORDERED: DIPHENOXYLATE/ATROPINE LOMOTIL 1 TAB PO PRN (11:11)
[2017-02-22] MEDS ORDERED: BISACODYL 10 MG SUPP PR PRN (11:11)
[2017-02-22] MEDS ORDERED: MAGNESIUM HYDROXIDE 30 ML UDCUP PO PRN (11:11)
[2017-02-22] MEDS ORDERED: diphenhydrAMINE 25 MG CAP PO PRN (11:11)
[2017-02-22] MEDS ORDERED: METOCLOPRAMIDE 10 MG/2 ML VIAL IVP PRN (11:11)
[2017-02-22] MEDS ORDERED: oxyCODONE IR 5 MG TAB PO PRN (11:11)
[2017-02-22] MEDS ORDERED: POLYETHYLENE GLYCOL 3350 17 GM PKT PO PRN (11:11)
[2017-02-22] MEDS ORDERED: LACTULOSE 20 GM/30 ML UDCUP PO PRN (11:11)
--- NOTE | 2017-02-22 11:13 | POSTOPPROG ---
Post Op Note Date of Operation: 02/28/17 Surgeon: Gonzalez De La Paz Kennel Operator: Erlinda Anesthesiologist: Sean Anesthesia: IV Sedation, Spinal Post-op Diagnosis: left hip arthritis Procedure: left BACILIO Inf/Abcess present in the surg proc area at time of surgery?: No EBL: 100-500
[2017-02-22] MEDS ORDERED: LR 1,000 ML IV SCH (11:30)
--- NOTE | 2017-02-22 11:47 | GOP ---
[f rep st] OPERATIVE REPORT DATE OF OPERATION: 02/22/2017 SURGEON: Gonzalez De La Paz MD MANAGER INTERVENTIONAL: Rajendra Ontiveros and Ronaldo Rivera. ANESTHESIA: Combination of Marcaine, spinal, and IV sedation. ANESTHESIOLOGIST: Lamonte Estrada MD. PREOPERATIVE DIAGNOSIS: Left hip severe degenerative arthritis. POSTOPERATIVE DIAGNOSIS: Left hip severe degenerative arthritis. PROCEDURE PERFORMED: 02/22/2017, left total hip arthroplasty, ceramic femoral head on highly cross-l inked polyethylene cup liner. FINDINGS: DESCRIPTION OF PROCEDURE: The patient was given 2 g of preoperative IV Ancef within 60 minutes of horne rgery. He also received IV tranexamic acid at a dose of 20 mg/kg. He was placed on the operating ro om table and given spinal anesthesia with Marcaine by Dr. Estrada. He was then placed supine and gi jordy IV sedation. A Quinn catheter was not used. He wore a NADINE stocking and SCD on the nonoperative leg. He was rolled to the right lateral decubitus position. The position was secured with the Verivue shagufta table attachment. An axillary roll was used, and all pressure points were carefully padded. I w as careful to lock his pelvis in a rigid vertical position. His perineum was isolated with plastic a dhesive drapes. The left hip and left lower extremity were prepped with ChloraPrep. They were drape d free using sterile sheets, stockinette, and Ioban plastic drapes. The [employer] time-out was performed to verify the correct surgical side and the jamey ect patient identity. The Sledge time-out was also performed. I made a 5-inch straight oblique posterolateral hip skin incision. Subcutaneous tissues were sharply divided, and hemostasis was obtained using electrocautery. The fascia glo was identified and split proximally along the axis of its fibers. I then curved posteriorly and proximally, and split the fa scia of gluteus jarred and bluntly split the muscle fibers in line with their orientation. A [facility] self-retaining retractor was inserted. His sciatic nerve was located, partially exposed, and prot ected throughout the procedure. The external rotators and the posterior hip capsule were divided as separate layers at the base of the femoral neck, tagged, and reflected posteriorly. A smooth 8-inch Steinmann pin was inserted vertically into the ilium, superior to the acetabulum. An 8-inch drill bi t was inserted vertically into the greater trochanter and parallel to the first pin. The distance be tween the 2 was measured for leg length reference. His femoral head was dislocated posteriorly. Parul y severe degenerative changes were present on the femoral head. The femoral neck was osteotomized at the appropriate level and inclination. I was careful to preserve all the posterior capsule and most of the anterior capsule. The remnant of his damaged labrum was excised. I prepared the femur first. This allowed me to barge master the amount of natural femoral neck anteversion. This, in turn, allowed me to later determine the correct amount of cup anteversion. He had approxi mately 10 degrees of natural femoral neck anteversion. The canal was opened laterally with a box chi yolanda. I started with the power starter reamer and then hand broached sequentially up to a size 5. I used a size 5 Accolade II broach as a trial stem. I was careful to lateralize adequately. Appropriate retractors were inserted to expose the acetabulum. The acetabulum was reamed sequentiall y up to 58 mm. I selected the Landen Tritanium solid-backed hemispherical shell. This was tapped s ecurely into place in the proper degree of inclination anteversion. I used the remnant of his transv erse acetabular ligament and other acetabular bony landmarks to help me properly orient the cup. He had very good quality bone and the fixation was very tight. He had large anterior, anterior-inferior and posterior-inferior osteophyte which I removed with an osteotome and rongeur. Supplemental screw fixation was not necessary. I inserted a screw-in metal dome hole plug. I performed a series of trial reductions to determine length and stability. I concluded that the siz e 5 Accolade II stem with a standard offset and a +2.5 mm neck length with a 36 mm head and a 10 degr ee lip trial liner gave me the proper combination of appropriate length and good anterior and posteri or stability. The 10 degree lip [employer] X3 highly cross-linked polyethylene liner was inserted and tapped securely into place. I dialed the 10 degree overhang so that it was directly posterior. I selected the Stryk er Accolade II stem in size 5 with standard offset. This was inserted press-fit and was very tight. He had very good quality bone in his proximal femur. I did 1 final trial reduction and confirmed th at the +2.5 mm neck length with a 36 mm head was the proper combination. I selected the Landen Biol ox Delta ceramic head with an outside diameter of 36 mm and a neck length of +2.5 mm. This was tappe d securely onto the clean trunnion. The acetabulum was irrigated, cleaned, and the hip was reduced 1 final time. He had excellent anterior and posterior stability and appropriate length. 40 mL of the joint anesthetic cocktail were injected into the capsule, the deep musculature, and the subcutaneous tissues around the skin edges. The joint was thoroughly irrigated 1 final time with a d ilute Betadine solution. His sciatic nerve was reinspected and looked unharmed. The external rotators and the posterior hip capsule were repaired in separate layers with #2 FiberWir e sutures through drill holes in the greater trochanter. This provided a strong posterior capsular a nd external rotator repair. The fascia glo was closed first with 2 [id number] #2 FiberWire sut ures followed by a running #2 barbed Ethicon Stratafix PDO suture. Subcutaneous tissues were closed with a running 0 barbed Ethicon Stratafix Monoderm suture. The skin was closed with a running 3-0 ba rbed Ethicon Stratafix Monoderm subcuticular suture. The skin edges were reapproximated and sealed w ith Dermabond glue. The wound was covered with a large sterile Mepilex water proof surgical dressing . A long-leg NADINE stocking and SCD were applied to his left lower extremity. He wore a stocking and SCD on the opposite leg during the procedure. An abduction pillow was placed between his knees. He was awakened from anesthesia and rolled to the supine position on his [facility]. He was taken to PACU in satisfactory condition. There were no recognized intraoperative complications. The estimate d blood loss was about 300 mL. The sponge and needle count were correct on 2 occasions. I used a Landen Tritanium hemispherical solid-backed acetabular shell with an outside diameter of 58 mm. The liner was a Landen X3 10-degree highly cross-linked liner with an inside diameter of 36 mm . The femoral component was a standard offset Accolade II stem in a size 5 and press-fit. The femor al head was a [employer] Biolox Delta ceramic head with a +2.5 mm neck length and a 36 mm outside diamet er. Rajendra Ontiveros and Ronaldo Rivera acted as surgical assistants. Their assistance was a medical necess ity for safe completion of the procedure. /[id number]/MODL
[2017-02-22] MEDS: PHENYTOIN SODIUM EXTENDED 100 MG CAP PO SCH ×3 (14:21→22:32)
[2017-02-22] MEDS: PHENOBARBITAL 32.4 MG PO SCH ×3 (14:22→22:32)
[2017-02-22] MEDS: ceFAZolin 2 GM/DEXTROSE 100 ML IV SCH ×2 (14:22→22:35)
[2017-02-22] MEDS: ACETAMINOPHEN 325 MG TAB PO SCH ×2 (15:14→18:25)
[2017-02-22] MEDS: TRANEXAMIC ACID 650 MG TAB PO SCH (18:25)
[2017-02-22] MEDS ORDERED: LATANOPROST 0.005% 2.5 ML OPHT DROPS RTEYE SCH ×2 (21:00)
[2017-02-22] MEDS: TIMOLOL 0.5% 15 ML OPHT.BTL EACHEYE SCH (21:59)
[2017-02-22] MEDS: BRIMONIDINE 0.2% 5 ML OPHT.BTL EACHEYE SCH (22:30)
[2017-02-22] MEDS: SENNOSIDES/DOCUSATE SODIUM TAB PO SCH (22:31)
[2017-02-22] MEDS: FAMOTIDINE 20 MG TAB PO SCH (22:32)
[2017-02-22] MEDS: DORZOLAMIDE 2% OPTH DROPS RTEYE SCH (22:36)
[2017-02-22] MEDS: ASPIRIN 325 MG TAB PO SCH (23:38)
[2017-02-23] MEDS: TRANEXAMIC ACID 650 MG TAB PO SCH ×2 (01:04→09:21)
[2017-02-23] MEDS: ACETAMINOPHEN 325 MG TAB PO SCH ×3 (01:05→12:02)
[2017-02-23] MEDS: PHENOBARBITAL 32.4 MG PO SCH ×2 (05:52→12:04)
[2017-02-23] MEDS: PHENYTOIN SODIUM EXTENDED 100 MG CAP PO SCH ×2 (05:53→12:04)
[2017-02-23 07:23] VITALS: BP 113/61; PULSE 57; RESP 14; TEMP 98.1; O2SAT 95
--- NOTE | 2017-02-23 07:37 | SOAPPROG ---
SOAP Progress Note Assessment/Plan: Assessment: POD #1. s/p L BACILIO Awake, alert, afebrile. Mild pain. Sciatic nerve intact. OOB with PT yesterday. Cathed x 1 yesterday, voiding on own now. VSS. H/H ok. Plan: D/c to home later today after cleared by PT. 02/23/17 07:34 Objective: Vital Signs Temp Pulse Resp BP Pulse Ox 36.7 C 57 L 14 113/61 95 02/23/17 07:22 02/23/17 07:22 02/23/17 07:22 02/23/17 07:22 02/23/17 07:22 Laboratory Results 02/23/17 04:52 02/22/17 02/23/17 02/24/17 05:59 05:59 05:59 Intake Total 3017 Output Total 1150 Balance 1867 ICD10 Worksheet Patient Problems: Problems Problem Status Onset Osteoarthritis of left hip Acute Vertigo Acute
--- NOTE | 2017-02-23 08:01 | GDS ---
[f rep st] DISCHARGE SUMMARY DATE OF ADMISSION: 02/22/2017 DATE OF DISCHARGE: 02/23/2017 ADMISSION DIAGNOSIS: Severe left hip osteoarthritis. DISCHARGE DIAGNOSIS: Severe left hip osteoarthritis. OPERATIONS PERFORMED: A left total hip arthroplasty with ceramic femoral head on highly cross-linked polyethylene cup liner. COMPLICATIONS: None. CONDITION ON DISCHARGE: Improved. DESCRIPTION OF HOSPITAL COURSE: The patient was admitted to the hospital on the day of surgery. His white blood cell count was 4.35. H and H were 12.4 and 37.8. His electrolyte panel was normal. The same day, under a combination of IV sedation and Marcaine spinal, he underwent a left total hip arthroplasty. A Quinn catheter was not used. He was treated with multimodal DVT prophylaxis including SCDs, NADINE stockings, full- strength aspirin, and early mobilization. On the 1st postoperative day, his hemoglobin and hematocrit were 10.3 and 30.2. He did not require any transfused blood. He was seen by Physical Therapy and made good progress with hip range of motion exercises and ambulation. By the time of discharge, he was independent with his walker and afebrile. DISPOSITION: The patient is discharged to his home. He will go directly to outpatient physical therapy. Full-strength aspirin x21 days. He has prescriptions for Celebrex, oxycodone, and tramadol for pain control. Zofran for nausea. He will be seen back in the office in 3 weeks. He is to call the office sooner if he has any problems or questions. Abduction pillow while in bed at night x3 weeks. Posterior hip precautions discussed. /[id number]/MODL MTDD
[2017-02-23] MEDS ORDERED: FERROUS SULFATE 140 MG TAB.ER PO SCH (09:00)
[2017-02-23] MEDS: ASPIRIN 325 MG TAB PO SCH (09:20)
[2017-02-23] MEDS: SENNOSIDES/DOCUSATE SODIUM TAB PO SCH (09:20)
[2017-02-23] MEDS: DORZOLAMIDE 2% OPTH DROPS RTEYE SCH (09:21)
[2017-02-23] MEDS: FAMOTIDINE 20 MG TAB PO SCH (09:21)
[2017-02-23] MEDS: BRIMONIDINE 0.2% 5 ML OPHT.BTL EACHEYE SCH (09:21)
[2017-02-23] MEDS: TIMOLOL 0.5% 15 ML OPHT.BTL EACHEYE SCH (09:22)
--- NOTE | 2017-02-23 12:58 | ASDISCHSUM ---
Discharge Information Plan Status:Home with No Needs Medically Cleared to Leave: Discharge Date:02/23/2017 12:31 PM CM D/C Disposition:Home, Routine, Self-Care ADT D/C Disposition:Home, Routine, Self-Care Projected Discharge Date:02/23/2017 12:31 PM Transportation at D/C: Discharge Delay Reason: Follow-Up Date:02/23/2017 12:31 PM Discharge Slot: Final Diagnosis: Placement Information Patient Contact Information Contact Name:OUMAR Relationship: Address:[address] City:[place] Alternate Phone: State/Zip Code:[place] [address] Email: Financial Information Financial Class: Primary Plan Desc:MEDICARE INPATIENT Primary Plan Number:[id number] Secondary Plan Desc:[employer]/MDR SUPPLEMENT Secondary Plan Number:[id number] Assessment Information [facility] CM Progress Note CM Note CM Note Notes: PT rec home vs. outpatient. note indicates pt will have outpatient. No CM d/c needs identified. Date Signed: 02/23/2017 12:57 PM Electronically Signed By:GARCIA Zaragoza Intervention Information
== END 2017-02-23 12:31 | disposition home or self-care (01) | DRG 470 ==
LOC: F3N 07:26
PROVIDERS: ADMIT Orthopaedic Surgery; ATTEND Orthopaedic Surgery
PROC: 0SRB04Z Replacement of Left Hip Joint with Ceramic on Polyethylene Synthetic Substitute, Open Approach (ICD-10-PCS; principal; 2017-02-22 09:45)
DX: M16.12 Unilateral primary osteoarthritis, left hip (principal)
CPT/HCPCS: 97116-GP; 97161-GP; 97165-GO; G8978-GP-CJ; G8979-GP-CI; G8980-GP-CI; G8987-GO-CI; G8988-GO-CI; G8989-GO-CI; J0171; J0690; J1100; J1885; J2250; J2704; J2795

== ENCOUNTER → 2018-05-29 | Outpatient (CLI) | payer OTHER, MEDICARE | LOC: BHFA 15:30 | PROVIDERS: ATTEND Internal Medicine Interventional Cardiology | DX: R53.83 Other fatigue (principal); R01.1 Cardiac murmur, unspecified; R06.2 Wheezing ==

== ENCOUNTER → 2018-06-18 | Outpatient (CLI) | payer OTHER, MEDICARE | DX: R06.02 Shortness of breath (principal); R01.1 Cardiac murmur, unspecified ==